=== PATIENT | female | born 1980 | race Caucasian/White ===

== ENCOUNTER → 2016-12-04 | Outpatient (CLI) | payer OTHER ==
--- NOTE | ~2016-12-04 | ECHO ---
Transthoracic Echocardiography Report (TTE) Demographics Patient Name BYRON HINTON Date of Study 12/04/2016 S Patient Number [id number] Visit Number [id number] Date of 1980 Room Number Gender Female Number Age 36 year(s) Referring José Antonio Wang MD Audio Narrator Vicky Norris [facility], Physician RVT Physician Interpreting Sam Garner MD Global Director Air And Climate Change Physician Supervising Ordering José Antonio Wang MD, MD/MLP Physician Nurse Stress Plaster Applicator Conclusions Contractility Score Summary Normal Left Ventricular contractility was noted. Summary The estimated left ventricular ejection fraction is 60-65%. No significant valvular abnormalities. Incidental finding of multiple cystic structures seen within left breast, largest measuring 3.70 cm x 1.90 cm. Procedure Type of Study TTE procedure:2D Echocardiogram. Procedure Date Date: 12/04/2016 Start: 03:14 PM Study Location: Echo Lab Technical Quality: Adequate visualization Indications:Bilateral lower extremity edema. Appropriate Use Criteria: 9 Patient Status: Routine Rhythm: NSR HR: 88 bpm BP: 128/61 mmHg M-Mode/2D Measurements LV Diastolic Dimension: 4.43 cm LV Systolic Dimension: 3.37 cm LV Septum Diastolic: 0.71 cm LV PW Diastolic: 0.93 cm AO Root Dimension: 2.8 cm Cardiac Output: 4.09 l/min AV Cusp Separation: 1.9 cm RV Diastolic Dimension: 2.29 cm LA volume: 41 ml LVOT: 1.7 cm RV Base: 3.06 cm LVOT VTI: 20.5 cm RV Mid: 2.32 cm LV Stroke volume: 46.51 ml TAPSE: 2.53 cm TDI-S': 12.4 cm/s Doppler Measurements AV Peak Velocity: 1.34 m/s MV Peak E-Wave: 1.27 m/s AV Peak Gradient: 7.18 mmHg MV Peak A-Wave: 0.86 m/s AV Mean Gradient: 4 mmHg MV E/A Ratio: 1.48 LVOT Peak Velocity: 1 m/s MV P1/2t: 40 msec TR Gradient:10.89 mmHg PV Peak Velocity: 0.92 m/s Estimated RAP:5 mmHg PV Peak Gradient: 3.37 mmHg Estimated RVSP: 16 mmHg Estimated PASP: 15.89 mmHg E' Septal Velocity: 0.12 m/s A' Septal Velocity: 0.09 m/s E' Lateral Velocity: 0.16 m/s A' Lateral Velocity: 0.12 m/s Findings Left Ventricle Normal left ventricle size and function. Diastolic assessment reveals normal relaxation. Right Ventricle Normal right ventricle structure and function. Left Atrium Normal left atrial size. Right Atrium Normal right atrial size. Mitral Valve Normal mitral valve structure and function. Aortic Valve Normal aortic valve structure and function. Tricuspid Valve Trivial tricuspid regurgitation by color Doppler. Pulmonic Valve Trivial pulmonic valve regurgitation by color Doppler. Pericardial Effusion No evidence of pericardial effusion. Miscellaneous Visualized portions of the aortic root and ascending aorta appear normal in size. Pleural Effusion No evidence of pleural effusion. Contractility Score LV regional wall motion:(0-Non visualized 1-Normal 2-Hypokinesis 3-Akinesis 4-Dyskinesis 5-Aneurysm) Signature dtt: Pascual Vargas (cardio) dtd: 12/04/16 1514 Physician Self Edit
== END | disposition disaster alternative care site (69) ==
LOC: GRAD 14:16
DX: R51 Headache (principal); M79.89 Other specified soft tissue disorders; J32.9 Chronic sinusitis, unspecified